=== PATIENT | female | born 1945 | race Caucasian/White ===

== ENCOUNTER 2018-11-17 11:39 | Inpatient (IN) | payer MEDICARE ==
[~2018-11-17] VITALS: Ht 162.6 cm; Wt 84.4 kg
[2018-11-17 12:05] LABS: CHLORIDE 106 mEq/L (98-107)
[2018-11-17 12:10] LABS: BASOPHILS % 0.6 % (0.0-2.0); EOSINOPHILS % 2.1 % (0.0-5.0); HEMATOCRIT. 44.1 % (36.0-48.0); HEMOGLOBIN. 14.8 g/dL (12.0-16.0); LYMPHOCYTES % 40.8 % (20.0-50.0); MEAN CORPUSCULAR HEMOGLOBIN 30.6 pg (28.0-32.0); MEAN CORPUSCULAR VOLUME 91.5 fL (81.0-99.0); MEAN PLATELET VOLUME 9.5 fl (7.4-10.4); MONOCYTES % 10.5 % (2.0-8.0); PLATELET 170 x1000/uL (130-400); PROTHROMBIN TIME 10.4 sec (9.1-11.1); RED BLOOD CELL COUNT 4.82 mill/uL (4.2-5.4)
[2018-11-17 12:15] LABS: ETHANOL BLOOD < 10 mg/dL
[2018-11-17 12:18] LABS: LDL CHOLESTEROL 64 mg/dL (5-100)
[2018-11-17] MEDS ORDERED: ASPIRIN 325MG TABLET PO ONE (14:15)
[2018-11-17] MEDS ORDERED: ONDANSETRON HCL 4MG/2ML INJ IV PRN (15:00)
[2018-11-17] MEDS ORDERED: IPRATROPIUM/ALBUTEROL 0.5-3(2.5)MG/3ML NEB INH PRN (15:00)
[2018-11-17] MEDS ORDERED: DIPHENHYDRAMINE 50MG/ML VIAL IV PRN (15:00)
[2018-11-17] MEDS ORDERED: HYDROCODONE/ACETAMINOPHEN 5/325MG TABLET PO PRN (15:00)
[2018-11-17] MEDS ORDERED: MAGNESIUM/ALUMINUM HYDROXIDE/SIMETHICONE 30ML UDC PO PRN (15:00)
[2018-11-17] MEDS ORDERED: CLONIDINE 0.1MG TABLET PO PRN (15:00)
[2018-11-17 15:08] LABS: PHOSPHORUS 3.6 mg/dL (2.5-4.9)
[2018-11-17 16:55] VITALS: BP 117/58
[2018-11-17 17:36] VITALS: BP 117/58
[2018-11-17 20:00] VITALS: BP 111/67
[2018-11-17] MEDS ORDERED: PHEN-909 PO (20:30)
[2018-11-17] MEDS ORDERED: ESTR42.53 VG (20:32)
[2018-11-17 21:40] LABS: CLARITY URINE CLEAR (CLEAR); COLOR URINE YELLOW (YELLOW); KETONES URINE NEGATIVE (NEGATIVE); LEUKOCYTE ESTERASE URINE NEGATIVE (NEGATIVE); NITRITE URINE NEGATIVE (NEGATIVE); OCCULT BLOOD URINE TRACE (NEGATIVE); PH URINE 7.5 (4.5-8.0); PROTEIN URINE NEGATIVE (NEGATIVE); SPECIFIC GRAVITY URINE 1.015 (1.005-1.030); UROBILINOGEN URINE 0.2 E.U./dL (0.2-1.0)
[2018-11-17 21:50] LABS: *BARBITURATES SCREEN URINE NEGATIVE (NEGATIVE); *BENZODIAZEPINES SCREEN URINE NEGATIVE (NEGATIVE); *COCAINE SCREEN URINE NEGATIVE (NEGATIVE); METHADONE URINE SCREEN NEGATIVE (NEGATIVE)
[2018-11-17 21:51] LABS: *AMPHETAMINES SCREEN URINE NEGATIVE (NEGATIVE); CANNABINOID URINE SCREEN NEGATIVE (NEGATIVE); OPIATES URINE SCREEN NEGATIVE (NEGATIVE); PHENCYCLIDINE URINE SCREEN NEGATIVE (NEGATIVE)
[2018-11-18] VITALS: BP 114/45
[2018-11-18 04:00] VITALS: BP 98/41
[2018-11-18 07:58] LABS: BASOPHILS % 0.6 % (0.0-2.0); EOSINOPHILS % 2.9 % (0.0-5.0); HEMATOCRIT. 41.8 % (36.0-48.0); HEMOGLOBIN. 14.1 g/dL (12.0-16.0); LYMPHOCYTES % 34.1 % (20.0-50.0); MEAN CORPUSCULAR VOLUME 91.9 fL (81.0-99.0); MEAN PLATELET VOLUME 9.8 fl (7.4-10.4); MONOCYTES % 9.4 % (2.0-8.0); PLATELET 153 x1000/uL (130-400); RED BLOOD CELL COUNT 4.55 mill/uL (4.2-5.4); RED CELL DISTRIBUTION WIDTH 13.8 % (11.6-14.6)
[2018-11-18 08:00] VITALS: BP 104/45
[2018-11-18 08:04] LABS: CHLORIDE 109 mEq/L (98-107)
[2018-11-18 08:13] LABS: LDL CHOLESTEROL 57 mg/dL (5-100)
[2018-11-18 08:14] LABS: HDL CHOLESTEROL 87 mg/dL (40-59)
[2018-11-18] MEDS: CLOPIDOGREL 75MG TABLET PO SCH (09:30)
[2018-11-18 11:48] LABS: VITAMIN B12 SERUM 741 pg/mL (211-911)
[2018-11-18 12:00] VITALS: BP 113/55
[2018-11-18 12:01] LABS: FOLIC ACID (FOLATE) SERUM > 20.00 ng/mL (>5.38)
[2018-11-18 16:00] VITALS: BP 122/46
[2018-11-18 20:00] VITALS: BP 101/50
[2018-11-18] MEDS: ACETAMINOPHEN 325MG TABLET PO PRN (21:52)
[2018-11-19] VITALS: BP 111/59
[2018-11-19 04:00] VITALS: BP 111/49
[2018-11-19] MEDS: ACETAMINOPHEN 325MG TABLET PO PRN (04:45)
[2018-11-19 08:00] VITALS: BP 94/47
[2018-11-19] MEDS: CLOPIDOGREL 75MG TABLET PO SCH (09:20)
[2018-11-19 11:23] LABS: BASOPHILS % 0.4 % (0.0-2.0); EOSINOPHILS % 2.9 % (0.0-5.0); HEMATOCRIT. 42.5 % (36.0-48.0); HEMOGLOBIN. 14.2 g/dL (12.0-16.0); LYMPHOCYTES % 36.3 % (20.0-50.0); MEAN CORPUSCULAR HEMOGLOBIN 30.7 pg (28.0-32.0); MEAN PLATELET VOLUME 10.1 fl (7.4-10.4); MONOCYTES % 9.4 % (2.0-8.0); PLATELET 157 x1000/uL (130-400); RED BLOOD CELL COUNT 4.62 mill/uL (4.2-5.4); RED CELL DISTRIBUTION WIDTH 13.8 % (11.6-14.6)
[2018-11-19 11:36] LABS: CHLORIDE 109 mEq/L (98-107)
[2018-11-19 12:00] VITALS: BP 109/50
[2018-11-19 12:18] VITALS: BP 108/43
== END 2018-11-19 13:00 | disposition home or self-care (01) | DRG 69 ==
LOC: ER 11:39 → 7WST 14:21 → EDBEDREQSVC 14:23 → EDBEDREQ 14:23 → ENRESERV 14:27
PROVIDERS: ADMIT Internal Medicine; ATTEND Internal Medicine
DX: G45.9 Transient cerebral ischemic attack, unspecified (principal); E03.9 Hypothyroidism, unspecified; I49.3 Ventricular premature depolarization; Z86.73 Personal history of transient ischemic attack (TIA), and cerebral infarction without residual deficits; Z88.5 Allergy status to narcotic agent
CPT/HCPCS: 36415; 70544; 70551; 71045; 80048; 80061; 80305; 82607; 82746; 83036; 83721; 83735; 84100; 84439; 84443; 84481; 84484; 93005; 93306; 93880; 93970; 97162; 97165; 99291